=== PATIENT | male | born 1955 | race Hispanic/Latino ===

== ENCOUNTER 2021-02-09 11:24 | Outpatient (CLI) | payer MEDICARE, MEDICAID ==
[2021-02-10 11:57] LABS: SARS-CoV-2 PCR by NAA Not Detected (NotDetected)
== END 2021-02-09 11:25 | disposition home or self-care (01) ==
LOC: CSHLAB 11:24
PROVIDERS: ATTEND Internal Medicine Gastroenterology
DX: Z20.822 Contact with and (suspected) exposure to COVID-19 (principal); R10.9 Unspecified abdominal pain; Z12.11 Encounter for screening for malignant neoplasm of colon
CPT/HCPCS: U0003; U0005